=== PATIENT | female | born 2000 | race Asian ===

== ENCOUNTER 2020-02-11 17:40 | Emergency (ER) | payer OTHER ==
[~2020-02-11] VITALS: Ht 172.7 cm; Wt 106.6 kg
[2020-02-11 18:12] VITALS: Ht 172.7 cm; Wt 106.6 kg
[2020-02-11 22:26] VITALS: BP 136/91
== END 2020-02-11 22:26 | disposition home or self-care (01) ==
LOC: ED 17:40
DX: S92.421A Displaced fracture of distal phalanx of right great toe, initial encounter for closed fracture (principal); I10 Essential (primary) hypertension; W22.8XXA Striking against or struck by other objects, initial encounter; Y93.89 Activity, other specified; Y92.89 Other specified places as the place of occurrence of the external cause; Y99.8 Other external cause status
CPT/HCPCS: J2001; Q0162